=== PATIENT | male | born 1985 | race Caucasian/White ===

== ENCOUNTER 2019-04-23 11:36 | Emergency (ER) | payer MEDICAID ==
[~2019-04-23] VITALS: Ht 175.3 cm; Wt 88.5 kg
[2019-04-23 12:01] VITALS: Ht 175.3 cm; Wt 88.5 kg
[2019-04-23 14:15] LABS: BASOPHIL % 0.1 % (0-2); PLATELET COUNT 134 x10^3mcL (130-400); RED CELL DISTRIBUTION WIDTH 12.1 % (11.5-14.5)
[2019-04-23 14:28] LABS: CALCIUM 9.1 mg/dL (8.5-10.1); CARBON DIOXIDE 29.7 mmol/L (21-32); CHLORIDE SERUM 100 mmol/L (98-107); CREATININE SERUM 0.9 mg/dL (0.7-1.3); GFR1 > 60 mL/min; GLUCOSE SERUM 279 mg/dL (74-106); POTASSIUM SERUM 4.1 mmol/L (3.5-5.1); SODIUM SERUM 137 mmol/L (136-145)
[2019-04-23 14:33] LABS: ALBUMIN 3.7 g/dL (3.4-5.0); ALKALINE PHOSPHATASE 89 U/L (46-116); ALT/SGPT 25 U/L (16-63); AST/SGOT 12 U/L (15-37); BILIRUBIN TOTAL 1.2 mg/dL (0.20-1.00); LIPASE 42 IU/L (73-393); TOTAL PROTEIN, SERUM 7.6 g/dL (6.4-8.2)
[2019-04-23 15:12] LABS: AMPHETAMINE QUAL UR NONE DETECTED (See below)
[2019-04-23 16:11] VITALS: BP 140/85
== END 2019-04-23 16:11 | disposition home or self-care (01) ==
LOC: ED 11:36
PROVIDERS: Emergency Medicine
DX: G43.909 Migraine, unspecified, not intractable, without status migrainosus (principal); E11.621 Type 2 diabetes mellitus with foot ulcer; L97.519 Non-pressure chronic ulcer of other part of right foot with unspecified severity; S90.411A Abrasion, right great toe, initial encounter; X58.XXXA Exposure to other specified factors, initial encounter; Y93.89 Activity, other specified; Y92.89 Other specified places as the place of occurrence of the external cause; Y99.8 Other external cause status
CPT/HCPCS: 82962; J1200; J2765; J7030

== ENCOUNTER 2020-09-19 10:59 | Emergency (ER) | payer BC ==
[~2020-09-19] VITALS: Ht 175.3 cm; Wt 93.4 kg
[2020-09-19 11:06] VITALS: Ht 175.3 cm; Wt 93.4 kg
[2020-09-19 12:12] LABS: BASOPHIL % 0.1 % (0-2); PLATELET COUNT 164 x10^3mcL (130-400); RED CELL DISTRIBUTION WIDTH 12.6 % (11.5-14.5)
[2020-09-19 12:19] LABS: CALCIUM 9.3 mg/dL (8.5-10.1); CARBON DIOXIDE 31.4 mmol/L (21-32); CHLORIDE SERUM 99 mmol/L (98-107); CREATININE SERUM 0.9 mg/dL (0.7-1.3); GFR1 > 60 mL/min; GLUCOSE SERUM 396 mg/dL (74-106); POTASSIUM SERUM 4.2 mmol/L (3.5-5.1); SODIUM SERUM 134 mmol/L (136-145)
[2020-09-19 12:24] LABS: ALBUMIN 3.5 g/dL (3.4-5.0); ALKALINE PHOSPHATASE 115 U/L (46-116); ALT/SGPT 32 U/L (16-63); AST/SGOT 16 U/L (15-37); BILIRUBIN TOTAL 0.58 mg/dL (0.20-1.00); C REACTIVE PROTEIN 9.9 mg/dL (<=0.9)
[2020-09-19 12:30] LABS: TOTAL PROTEIN, SERUM 8.5 g/dL (6.4-8.2)
[2020-09-19 13:01] LABS: ERYTHROCYTE SED RATE 54 mm/hr (0-15)
[2020-09-19 15:08] VITALS: BP 130/81
== END 2020-09-19 15:08 | disposition home or self-care (01) ==
LOC: ED 10:59
PROVIDERS: Specialist
DX: L97.511 Non-pressure chronic ulcer of other part of right foot limited to breakdown of skin (principal); L03.031 Cellulitis of right toe; E11.65 Type 2 diabetes mellitus with hyperglycemia
CPT/HCPCS: 36600; 82962; J2543; J3370; J7030; J7050

== ENCOUNTER 2020-10-16 10:38 | Emergency (ER) | payer BC ==
[~2020-10-16] VITALS: Ht 175.3 cm; Wt 95.7 kg
[2020-10-16 10:57] VITALS: BP 135/81; Ht 175.3 cm; Wt 95.7 kg
== END 2020-10-16 13:29 | disposition home or self-care (01) ==
LOC: ED 10:38
DX: E11.621 Type 2 diabetes mellitus with foot ulcer (principal); L97.519 Non-pressure chronic ulcer of other part of right foot with unspecified severity

== ENCOUNTER 2020-10-21 12:34 | Emergency (ER) | payer BC ==
[~2020-10-21] VITALS: Ht 177.8 cm; Wt 93.4 kg
[2020-10-21 12:48] VITALS: Ht 177.8 cm; Wt 93.4 kg
[2020-10-21 14:47] VITALS: BP 115/73
== END 2020-10-21 14:47 | disposition home or self-care (01) ==
LOC: ED 12:34
DX: E11.621 Type 2 diabetes mellitus with foot ulcer (principal); L97.519 Non-pressure chronic ulcer of other part of right foot with unspecified severity; M86.60 Other chronic osteomyelitis, unspecified site; E11.9 Type 2 diabetes mellitus without complications